=== PATIENT | male | born 1995 | race Caucasian/White ===

== ENCOUNTER 2020-06-28 17:19 | Emergency (ER) | payer SELFPAY ==
--- NOTE | 2020-06-28 18:43 | ER ---
Nurse's Notes [facility] Name: Emory Gomez Age: 25 yrs Sex: Male : 1995 Arrival Date: 06/28/2020 Time: 17:20 Bed Waiting Private MD: Diagnosis: Presentation: 06/28 17:38 Chief complaint: Patient states: R ear pain since last night. This morning started ca1 draining with a little bit of blood. Reports frequent ear infections. Coronavirus screen: Client denies travel out of the [place] in the last 14 days. At this time, the client does not indicate any symptoms associated with coronavirus-19. Ebola Screen: Patient negative for fever greater than or equal to 101.5 degrees Fahrenheit, and additional compatible Ebola Virus Disease symptoms Patient denies exposure to infectious person. Patient denies travel to an Ebola-affected area in the 21 days before illness onset. No symptoms or risks identified at this time. Initial Sepsis Screen: Does the patient meet any 2 criteria? No. Patient's initial sepsis screen is negative. Does the patient have a suspected source of infection? No. Patient's initial sepsis screen is negative. Risk Assessment: Do you want to hurt yourself or someone else? Patient reports no desire to harm self or others. Onset of symptoms was June 28, 2020. 17:38 Method Of Arrival: Ambulatory ca1 17:38 Acuity: SANTY 5 ca1 Historical: - Allergies: 17:40 No Known Allergies; ca1 - Home Meds: 17:40 None [Active]; ca1 - PMHx: 17:40 None; ca1 - PSHx: 17:40 None; ca1 - Immunization history:: Adult Immunizations up to date. - Social history:: Smoking status: Patient reports the use of cigarette tobacco products, smokes one-half pack cigarettes per day. Assessment: 18:23 Reassessment: not in lobby. iw Vital Signs: 17:38 BP 145 / 94; Pulse 88; Resp 18 S; Temp 98.1(TE); Pulse Ox 100% on R/A; Weight 122.47 kg ca1 (R); Height 6 ft. 4 in. (193.04 cm) (R); 17:38 Body Mass Index 32.87 (122.47 kg, 193.04 cm) ca1 ED Course: 17:20 Patient arrived in ED. ds1 17:40 Triage completed. ca1 17:40 Arm band placed on right wrist. ca1 18:22 Letitia Mcdonnell, RN is Primary Nurse. iw Administered Medications: No medications were administered Outcome: 18:43 Patient left the ED. iw Signatures: Pat Tejada ds1 Letitia Mcdonnell, RN RN iw Sharlene Mendieta RN RN ca1
[2020-06-28 20:34] VITALS: BP 145/94; TEMP 98.1; O2SAT 100
== END 2020-06-28 18:43 | disposition left against medical advice (07) ==
LOC: ER 17:19
DX: Z02.9 Encounter for administrative examinations, unspecified (principal)

== ENCOUNTER 2020-09-20 11:11 | Emergency (ER) | payer SELFPAY ==
--- OUTSIDE RECORDS SUMMARY | 2020-09-20 11:25 | XMS REPORT | Continuity of Care Document ---
:1995 Author Organization [facility] t Address [address] [place] [address] [address] [place] [address] Care Team Providers Name Role Phone Cassandra Mcgowan Attending Clinician Problems This patient has no known problems. Allergies, Adverse Reactions, Alerts This patient has no known allergies or adverse reactions. Medications This patient has no known medications. Procedures This patient has no known procedures. Encounters Start End Encounter Admission Attending Care Care Encounter Source Date/Time Date/Time Type Type Clinicians Facility Department ID 2020-08-31 2020-08-31 Emergency Ari Vincent [facility] [id number] 13:12:00 17:05:00 Cassandra Mcdonald [id number] [place] [id number] [place] [id number] Results This patient has no known results.
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
[2020-09-20] MEDS ORDERED: FAMOTIDINE 20 MG/2 ML VIAL IV ONE (12:08)
[2020-09-20] MEDS ORDERED: METHYLPREDNISOLONE 125 MG INJ ONE (12:08)
[2020-09-20] MEDS ORDERED: DIPHENHYDRAMINE 50 MG/ML VIAL ONE (12:08)
[2020-09-20] MEDS ORDERED: PROMETHAZINE INJ 25 MG/ML AMP ONE (12:08)
[2020-09-20] MEDS ORDERED: NA CHLORIDE 0.9% 1,000 ML ONE (12:08)
--- NOTE | 2020-09-20 14:36 | EDPHYS ---
Physician Documentation [facility] Name: Emory Gomez Age: 25 yrs Sex: Male : 1995 Arrival Date: 09/20/2020 Time: 11:14 Bed 17 Private MD: ED Physician Pool Urrutia HPI: 09/20 12:08 This 25 yrs old Male presents to ER via Ambulatory with complaints of snw Allergic Reaction, Bee Sting. 12:08 The patient presents with itching, localized swelling, redness of skin, cough. Onset: snw The symptoms/episode began/occurred suddenly, just prior to arrival. Associated signs and symptoms: The patient has no apparent associated signs or symptoms. Possible causes: bees. At home the patient or guardian has treated the symptoms with nothing, pt was not home. Severity of symptoms: At their worst the symptoms were mild moderate in the emergency department the symptoms are unchanged. The patient has experienced similar episodes in the past, had had to use epi-pen in the past. The patient has not recently seen a physician. Historical: - Allergies: 11:47 No Known Allergies; ca1 - Home Meds: 11:47 None [Active]; ca1 - PMHx: :47 None; ca1 - PSHx: 11:47 None; ca1 - Immunization history:: Adult Immunizations up to date, Flu vaccine is up to date. - Social history:: Smoking status: Patient reports the use of cigarette tobacco products, smokes one pack cigarettes per day. ROS: 12:06 Constitutional: Negative for fever, chills, and weight loss, Eyes: Negative for injury, snw pain, redness, and discharge, ENT: Negative for injury, pain, and discharge, Neck: Negative for injury, pain, and swelling, Cardiovascular: Negative for chest pain, palpitations, and edema, Abdomen/GI: Negative for abdominal pain, nausea, vomiting, diarrhea, and constipation, Back: Negative for injury and pain, : Negative for injury, bleeding, discharge, and swelling, MS/Extremity: Negative for injury and deformity, Neuro: Negative for headache, weakness, numbness, tingling, and seizure, Psych: Negative for depression, anxiety, suicide ideation, homicidal ideation, and hallucinations. 12:06 Respiratory: Positive for cough, with no reported sputum, scratchy throat. 12:06 Allergy/Immunology: Positive for allergies. Exam: 12:04 Constitutional: This is a well developed, well nourished patient who is awake, alert, snw and in no acute distress. Head/Face: Normocephalic, atraumatic. Eyes: Pupils equal round and reactive to light, extra-ocular motions intact. Lids and lashes normal. Conjunctiva and sclera are non-icteric and not injected. Cornea within normal limits. Periorbital areas with no swelling, redness, or edema. ENT: Nares patent. No nasal discharge, no septal abnormalities noted. Tympanic membranes are normal and external auditory canals are clear. Oropharynx with no redness, swelling, or masses, exudates, or evidence of obstruction, uvula midline. Mucous membranes moist. Neck: Trachea midline, no thyromegaly or masses palpated, and no cervical lymphadenopathy. Supple, full range of motion without nuchal rigidity, or vertebral point tenderness. No Meningismus. Chest/axilla: Normal chest wall appearance and motion. Nontender with no deformity. No lesions are appreciated. Cardiovascular: Regular rate and rhythm with a normal S1 and S2. No gallops, murmurs, or rubs. Normal PMI, no JVD. No pulse deficits. Respiratory: Lungs have equal breath sounds bilaterally, clear to auscultation and percussion. No rales, rhonchi or wheezes noted. No increased work of breathing, no retractions or nasal flaring. Abdomen/GI: Soft, non-tender, with normal bowel sounds. No distension or tympany. No guarding or rebound. No evidence of tenderness throughout. Back: No spinal tenderness. No costovertebral tenderness. Full range of motion. MS/ Extremity: Pulses equal, no cyanosis. Neurovascular intact. Full, normal range of motion. Neuro: Awake and alert, GCS 15, oriented to person, place, time, and situation. Cranial nerves II-XII grossly intact. Motor strength 5/5 in all extremities. Sensory grossly intact. Cerebellar exam normal. Normal gait. Psych: Awake, alert, with orientation to person, place and time. Behavior, mood, and affect are within normal limits. 12:04 Skin: Appearance: Color: pink, erythematous, Temperature: hot, Moisture: dry, bee stings to left upper arm and inner wrist, erythema, area scraped with tongue blade. 13:00 Special observations: Pt feeling better, no complaints. snw Vital Signs: 11:45 BP 136 / 91; Pulse 65; Resp 16 S; Temp 97.2(TE); Pulse Ox 100% on R/A; Weight 131.54 kg ca1 (R); Height 6 ft. 4 in. (193.04 cm) (R); 12:42 BP 129 / 88; Pulse 70; Resp 16; Temp 97.5; Pulse Ox 100% on R/A; mh5 14:15 BP 123 / 74; Pulse 62; Resp 17; Pulse Ox 97% ; ll2 11:45 Body Mass Index 35.30 (131.54 kg, 193.04 cm) ca1 MDM: 12:10 Patient medically screened. snw 15:49 Data reviewed: vital signs, nurses notes. Data interpreted: Pulse oximetry: on room air snw is 97 %. Interpretation: normal. Counseling: I had a detailed discussion with the patient and/or guardian regarding: the historical points, exam findings, and any diagnostic results supporting the discharge/admit diagnosis, the need for outpatient follow up, to return to the emergency department if symptoms worsen or persist or if there are any questions or concerns that arise at home. Special discussion: Based on the history and exam findings, there is no indication for further emergent testing or inpatient evaluation. I discussed with the patient/guardian the need to see the software engineering project manager for further evaluation of the symptoms. I discussed with the patient/guardian the need to see the primary care provider for further evaluation of the symptoms. Administered Medications: 11:53 Drug: NS 0.9% 1000 ml Route: IV; Rate: 1 bolus; Site: right hand; ca1 13:00 Follow up: Response: No adverse reaction; IV Status: Completed infusion; IV Intake: ll2 1000ml 11:54 Drug: SOLU-Medrol 125 mg Route: IVP; Site: right hand; ca1 14:49 Follow up: Response: No adverse reaction ll2 11:56 Drug: Benadryl 25 mg Route: IVP; Site: right hand; ca1 14:48 Follow up: Response: No adverse reaction ll2 11:58 Drug: Phenergan 12.5 mg Route: IVP; Site: right hand; ca1 14:48 Follow up: Response: No adverse reaction ll2 12:00 Drug: Pepcid 20 mg Route: IVP; Site: right hand; ca1 14:47 Follow up: Response: No adverse reaction ll2 Disposition: 09/21 06:58 Co-signature as Attending Physician, Pool Urrutia MD I agree with the assessment and [facility] plan of care. Disposition: 09/20/20 14:35 Discharged to Home. Impression: Allergy, unspecified, Bee allergy status. - Condition is Stable. - Discharge Instructions: Allergies, Adult, Bee, Wasp, or Hornet Sting, Adult, Rehydration, Adult. - Prescriptions for Zyrtec 10 mg Oral Tablet - take 1 tablet by ORAL route once daily As needed; 20 tablet. Prednisone 20 mg Oral Tablet - take 2 tablet by ORAL route once daily for 5 days; 10 tablet. Pepcid 20 mg Oral Tablet - take 1 tablet by ORAL route once daily; 20 tablet. EpiPen 0.3 mg Injection auto- injector - inject 1 packet by INTRAMUSCULAR route as directed Inject into the outer portion of the thigh, through clothing if necessary. Indicated in the emergency treatment of allergic reactions. If used, must go to nearest ER immediately; 1 packet. - Work release form, Medication Reconciliation Form, Thank You Letter, Antibiotic Education, Prescription Opioid Use form. - Follow up: Emergency Department; When: As needed; Reason: Worsening of condition. Follow up: Private Physician; When: 2 - 3 days; Reason: Recheck today's complaints, Continuance of care, Re-evaluation by your physician. Signatures: Pool Urrutia MD MD cha Waters, Shelly, REFRIGERATION PLANT OPERATOR-C REFRIGERATION PLANT OPERATOR-Csnw Sharlene Mendieta RN RN ca1 Chio Ahumada RN RN ll2 Corrections: (The following items were deleted from the chart) 09/20 14:50 14:35 09/20/2020 14:35 Discharged to Home. Impression: Allergy, unspecified; Bee ll2 allergy status. Condition is Stable. Forms are Medication Reconciliation Form, Thank You Letter, Antibiotic Education, Prescription Opioid Use. Follow up: Emergency Department; When: As needed; Reason: Worsening of condition. Follow up: Private Physician; When: 2 - 3 days; Reason: Recheck today's complaints, Continuance of care, Re-evaluation by your physician. snw
--- NOTE | 2020-09-20 14:36 | ER ---
Nurse's Notes [facility] Name: Emory Gomez Age: 25 yrs Sex: Male : 1995 Arrival Date: 09/20/2020 Time: 11:14 Bed 17 Private MD: Diagnosis: Allergy, unspecified;Bee allergy status Presentation: 09/20 11:43 Chief complaint: Patient states: Bee sting on the L arm > 30 mins [employer]. Last time I was ca1 stung by a Bee I had to give my self a shot of EpiPen. Reports coughing, a little bit of difficulty breathing and Drowsiness at this time. 11:43 Method Of Arrival: Ambulatory ca1 11:45 Coronavirus screen: Client denies travel out of the [place] in the last 14 days. shortness ca1 of breath, Client presents with at least one sign or symptom that may indicate coronavirus-19. Standard/surgical mask placed on the client. Provider contacted for isolation considerations. Ebola Screen: Patient negative for fever greater than or equal to 101.5 degrees Fahrenheit, and additional compatible Ebola Virus Disease symptoms Patient denies exposure to infectious person. Patient denies travel to an Ebola-affected area in the 21 days before illness onset. No symptoms or risks identified at this time. Initial Sepsis Screen: Does the patient meet any 2 criteria? No. Patient's initial sepsis screen is negative. Does the patient have a suspected source of infection? No. Patient's initial sepsis screen is negative. Risk Assessment: Do you want to hurt yourself or someone else? Patient reports no desire to harm self or others. Onset of symptoms was September 20, 2020. 11:45 Acuity: SANTY 2 ca1 Triage Assessment: 11:15 General: Checked pt. Denies difficulty breathing and swallowing. . ca1 11:15 Respiratory: Airway is patent Respiratory effort is even, unlabored, Respiratory ca1 pattern is regular, symmetrical. Historical: - Allergies: 11:47 No Known Allergies; ca1 - Home Meds: 11:47 None [Active]; ca1 - PMHx: 11:47 None; ca1 - PSHx: 11:47 None; ca1 - Immunization history:: Adult Immunizations up to date, Flu vaccine is up to date. - Social history:: Smoking status: Patient reports the use of cigarette tobacco products, smokes one pack cigarettes per day. Screenin:00 Abuse screen: Denies threats or abuse. Denies injuries from another. Nutritional ll2 screening: No deficits noted. Tuberculosis screening: No symptoms or risk factors identified. Fall Risk IV access (20 points). Total Sy Fall Scale indicates No Risk (0-24 pts). Assessment: 12:36 General: Appears in no apparent distress. Behavior is calm, cooperative, appropriate ll2 for age. Pain: Denies pain. Neuro: Level of Consciousness is awake, alert, obeys commands, Oriented to person, place, time, situation. Cardiovascular: Patient's skin is warm and dry. Respiratory: Airway is patent Respiratory effort is even, unlabored, Respiratory pattern is regular, symmetrical. GI: No signs and/or symptoms were reported involving the gastrointestinal system. : No signs and/or symptoms were reported regarding the genitourinary system. EENT: No signs and/or symptoms were reported regarding the EENT system. Derm: Skin is intact, is healthy with good turgor, Skin is pink, warm \T\ dry. Musculoskeletal: Circulation, motion, and sensation intact. Range of motion: intact in all extremities. 13:30 Reassessment: Patient and/or family updated on plan of care and expected duration. Pain ll2 level reassessed. Patient is alert, oriented x 3, equal unlabored respirations, skin warm/dry/pink. 14:37 Reassessment: pt updated on d/c status and eta time of discharge. ll2 Vital Signs: 11:45 BP 136 / 91; Pulse 65; Resp 16 S; Temp 97.2(TE); Pulse Ox 100% on R/A; Weight 131.54 kg ca1 (R); Height 6 ft. 4 in. (193.04 cm) (R); 12:42 BP 129 / 88; Pulse 70; Resp 16; Temp 97.5; Pulse Ox 100% on R/A; mh5 14:15 BP 123 / 74; Pulse 62; Resp 17; Pulse Ox 97% ; ll2 11:45 Body Mass Index 35.30 (131.54 kg, 193.04 cm) ca1 ED Course: 11:14 Patient arrived in ED. as 11:47 Triage completed. ca1 11:47 Arm band placed on right wrist. ca1 11:52 Cindy Pizarro FNP-C is PHCP. snw 11:52 Pool Urrutia MD is Attending Physician. snw 11:52 Inserted saline lock: 20 gauge in right hand, using aseptic technique. ca1 12:00 Patient has correct armband on for positive identification. Bed in low position. Call ll2 light in reach. Side rails up X 1. Pulse ox on. NIBP on. 12:17 Chio Ahumada, MANDY is Primary Nurse. ll2 14:49 No provider procedures requiring assistance completed. IV discontinued, intact, ll2 bleeding controlled, No redness/swelling at site. Pressure dressing applied. Administered Medications: 11:53 Drug: NS 0.9% 1000 ml Route: IV; Rate: 1 bolus; Site: right hand; ca1 13:00 Follow up: Response: No adverse reaction; IV Status: Completed infusion; IV Intake: ll2 1000ml 11:54 Drug: SOLU-Medrol 125 mg Route: IVP; Site: right hand; ca1 14:49 Follow up: Response: No adverse reaction ll2 11:56 Drug: Benadryl 25 mg Route: IVP; Site: right hand; ca1 14:48 Follow up: Response: No adverse reaction ll2 11:58 Drug: Phenergan 12.5 mg Route: IVP; Site: right hand; ca1 14:48 Follow up: Response: No adverse reaction ll2 12:00 Drug: Pepcid 20 mg Route: IVP; Site: right hand; ca1 14:47 Follow up: Response: No adverse reaction ll2 Intake: 13:00 IV: 1000ml; Total: 1000ml. ll2 Outcome: 14:35 Discharge ordered by . snw 14:49 Discharged to home ambulatory. ll2 14:49 Condition: stable 14:49 Discharge instructions given to patient, Instructed on discharge instructions, follow up and referral plans. medication usage, Demonstrated understanding of instructions, follow-up care, medications. 14:50 Prescriptions given X 4. ll2 14:50 Patient left the ED. ll2 Signatures: Cindy Pizarro FNP-C FNP-Ginger Araujo [facility] Sharlene Mendieta RN RN ca1 Chio Ahumada, MANDY RN ll2 Corrections: (The following items were deleted from the chart) 11:47 11:43 Chief complaint: Patient states: Bee sting on the L arm > 30 mins [employer]. Last time ca1 I was stung by a Bee I had to give my self a shot of EpiPen. Reports coughing, SOB and Drowsiness at this time ca1 12:01 11:43 Chief complaint: Patient states: Bee sting on the L arm > 30 mins [employer]. Last time ca1 I was stung by a Bee I had to give my self a shot of EpiPen. Reports coughing, SOB and Drowsiness at this time ca1 14:48 14:47 Response: No adverse reaction; IV Status: Completed infusion; IV Intake: 1000ml ll2 ll2
[2020-09-20 15:38] VITALS: TEMP 97.5
[2020-09-20 15:40] VITALS: BP 123/74; O2SAT 97
== END 2020-09-20 14:50 | disposition home or self-care (01) ==
LOC: ER 11:11
DX: R05 Cough (principal); Z91.030 Bee allergy status; F17.210 Nicotine dependence, cigarettes, uncomplicated
CPT/HCPCS: 96361; 96374; 96375; 99284; J1200; J2550; J2930; J7030